=== PATIENT | male | born 1960 | race Caucasian/White ===

== ENCOUNTER → 2021-02-14 | Day surgery (SDC) | payer OTHER ==
[~2021-02-14] VITALS: Ht 182.9 cm; Wt 107.7 kg
[~2021-02-14] MED LIST: CYCLOBENZAPRINE10 MG PO; NORCO 7.5-3251 EACH PO; PRINIVIL10 MG PO
== END | disposition home or self-care (01) ==
LOC: FAS 09:15
DX: Z12.11 Encounter for screening for malignant neoplasm of colon (principal); D12.3 Benign neoplasm of transverse colon; D12.4 Benign neoplasm of descending colon; D12.5 Benign neoplasm of sigmoid colon; K57.30 Diverticulosis of large intestine without perforation or abscess without bleeding; Z86.010 Personal history of colon polyps; Z85.51 Personal history of malignant neoplasm of bladder; Z87.891 Personal history of nicotine dependence; I10 Essential (primary) hypertension; Z87.09 Personal history of other diseases of the respiratory system
CPT/HCPCS: J2250; J2704; J7120